=== PATIENT | male | born 1980 | race Caucasian/White ===

== ENCOUNTER 2020-11-27 08:36 | Emergency (ER) | payer MEDICAID | END 2020-11-27 11:13 | LOC: CSHERS 08:36 | DX: S06.9X0A Unspecified intracranial injury without loss of consciousness, initial encounter (principal); R45.1 Restlessness and agitation; J45.909 Unspecified asthma, uncomplicated; Y04.0XXA Assault by unarmed brawl or fight, initial encounter | CPT/HCPCS: 99284 ==